=== PATIENT | female | born 1985 | race Caucasian/White ===

== ENCOUNTER 2016-12-20 20:34 | Emergency (ER) | payer MEDICAID ==
--- NOTE | 2016-12-20 23:28 | RADIOLOGY REPORT (SQ) ---
EXAM DESCRIPTION: FOOT RIGHT COMPLETE COMPLETED DATE/TIME: 12/20/2016 11:11 pm REASON FOR STUDY: pain COMPARISON: None. NUMBER OF VIEWS: Three views. TECHNIQUE: AP, lateral and oblique radiographic images acquired of the right foot. LIMITATIONS: None. FINDINGS: MINERALIZATION: Normal. BONES: No acute fracture or dislocation. No worrisome bone lesions. JOINTS: No effusions. SOFT TISSUES: Diffuse dorsal soft tissue swelling. No radiopaque foreign body. OTHER: No other significant finding. IMPRESSION: Diffuse dorsal soft tissue swelling. No fracture or radiopaque foreign body. TECHNICAL DOCUMENTATION: JOB ID: [id number] [employer]- All Rights Reserved
[2016-12-21] MEDS ORDERED: HYDROCODONE/ACETAMINOPHEN 5-325 MG 6 TAB/DSPK PO PRN (00:58)
[2016-12-21] MEDS ORDERED: DIPHENHYDRAMINE HCL 50 MG CAPSULE PO ONE (00:58)
[2016-12-21] MEDS ORDERED: DEXAMETHASONE 4 MG TABLET PO ONE (00:58)
--- NOTE | 2016-12-21 01:01 | ER Document Report ---
HPI - HPI Patient complains to provider of: right foot swelling Onset: This evening Onset/Duration: Gradual Quality of pain: Achy Pain Level: 3 Context: Patient states that she went to the beach today and about an hour after returning from the beach she noticed that her foot was itchy and mildly red. Patient states that that has continued to swell. Patient denies any known injury. Patient denies any marine injury. Patient denies any fever. Associated Symptoms: Other - foot swelling, reddness Exacerbated by: Denies Relieved by: Denies Similar symptoms previously: No Recently seen / treated by doctor: No - ROS ROS below otherwise negative: Yes Systems Reviewed and Negative: Yes All other systems reviewed and negative - CONSTITUTIONAL Constitutional: DENIES: Fever, Chills - CARDIOVASCULAR Cardiovascular: DENIES: Chest pain - RESPIRATORY Respiratory: DENIES: Trouble Breathing, Coughing - MUSCULOSKELETAL Musculoskeletal: REPORTS: Extremity pain, Swelling - DERM Skin Color: Erythema Past Medical History - General Information source: Patient - Social History Smoking Status: Never Smoker Frequency of alcohol use: None Drug Abuse: None Occupation: none Lives with: Family Family History: Reviewed & Not Pertinent - Medical History Medical History: Negative Renal/ Medical History: Denies: Hx Peritoneal Dialysis Past Surgical History: Reports: Hx Gynecologic Surgery Vertical Provider Document - CONSTITUTIONAL Agree With Documented VS: Yes Exam Limitations: No Limitations General Appearance: WD/WN, No Apparent Distress - HEENT HEENT: Atraumatic, Normocephalic - NECK Neck: Normal Inspection, Supple - RESPIRATORY Respiratory: Breath Sounds Normal, No Respiratory Distress, Chest Non-Tender O2 Sat by Pulse Oximetry: 100 - CARDIOVASCULAR Cardiovascular: Regular Rate, Regular Rhythm, No Murmur Pulses: Normal: Dorsalis pedis - MUSCULOSKELETAL/EXTREMETIES Musculoskeletal/Extremeties: MAEW, Tender - Tenderness to right foot, Edema - r foot - NEURO Level of Consciousness: Awake, Alert, Appropriate Motor/Sensory: No Motor Deficit - DERM Integumentary: Warm, Dry. negative: Abscess Notes: Right foot erythema surrounding the centralized lesion concerning for insect bite. No abscess Course - Re-evaluation Re-evalutation: 12/21/16 01:00 Suspect patient's erythematous symptoms are result of inflammatory response versus cellulitis at this time. Discussed worsening signs or symptoms that patient should return immediately for. - Vital Signs Vital signs: Temp Pulse Resp BP Pulse Ox 98.6 F 78 20 115/75 100 06/19/17 20:59 12/20/16 20:59 12/20/16 20:59 12/20/16 20:59 12/20/16 20:59 Discharge - Discharge Clinical Impression: Insect bite Qualifiers: Encounter type: initial encounter Qualified Code(s): W57.XXXA - Bitten or stung by nonvenomous insect and other nonvenomous arthropods, initial encounter Condition: Stable Disposition: HOME, SELF-CARE Instructions: Swollen Insect Bite or Sting ([facility]), Use of Diphenhydramine, Topical Steroid Cream or Ointment ([facility]), Steroid Medication Additional Instructions: Return immediately for any new or worsening symptoms Followup with your primary care provider, call tomorrow to make a followup appointment Prescriptions: Naproxen [Naprosyn 250 Nmg Tablet] 1 tab PO BID #14 tablet Triamcinolone Acetonide [Aristocort 0.1% Cream] 1 applic TP TID #60 gm Referrals: [facility] [Provider Group] - Follow up as needed
[2016-12-21 01:52] VITALS: BP 114/76
== END 2016-12-21 01:54 | disposition home or self-care (01) ==
LOC: ER 20:34
DX: M79.89 Other specified soft tissue disorders (principal); W57.XXXA Bitten or stung by nonvenomous insect and other nonvenomous arthropods, initial encounter
CPT/HCPCS: 99283; 73630; J3490 ×2

== ENCOUNTER 2017-06-12 00:07 | Emergency (ER) | payer MEDICAID ==
[2017-06-12 00:25] VITALS: BP 102/77
[2017-06-12] MEDS ORDERED: DEXAMETHASONE SOD PHOS INJ 10 MG/1 ML VIAL IM ONE (00:55)
--- NOTE | 2017-06-12 00:59 | ER Document Report ---
ED General - General Chief Complaint: Cough Stated Complaint: COUGH,SORETHROAT Time Seen by Provider: 06/12/17 00:38 Notes: Patient is a 31-year-old female who presents with complaint of runny nose cough congestion and some ear pressure. It has been ongoing for several days. Patient's son and also of the same symptoms. She has not had any fevers. She is not a smoker. She has no chronic medical issues. She denies abdominal pain or vomiting. No other complaints at this time. - Related Data Allergies/Adverse Reactions: No Known Allergies Allergy (Verified 06/12/17 00:09) Past Medical History - Social History Smoking Status: Never Smoker Chew tobacco use (# tins/day): No Frequency of alcohol use: None Drug Abuse: None Family History: Reviewed & Not Pertinent Patient has suicidal ideation: No Patient has homicidal ideation: No Renal/ Medical History: Denies: Hx Peritoneal Dialysis Past Surgical History: Reports: Hx Gynecologic Surgery - Immunizations Hx Diphtheria, Pertussis, Tetanus Vaccination: Yes Review of Systems - Review of Systems Notes: My Normal Review Basic REVIEW OF SYSTEMS: CONSTITUTIONAL : Denies fever, chills, or sweats. EENT: Nasal congestion. Ear pressure. RESPIRATORY: Cough. GASTROINTESTINAL: Denies abdominal pain. Denies nausea, vomiting, or diarrhea. Denies constipation. Last BM: MUSCULOSKELETAL: Denies neck or back pain or joint pain or swelling. SKIN: Denies rash or skin lesions. NEUROLOGICAL: Denies altered mental status or loss of consciousness. Denies headache. Denies weakness or paralysis or loss of use of either side. Denies problems with gait or speech. Denies sensory or motor loss. ALL OTHER SYSTEMS REVIEWED AND NEGATIVE. Physical Exam - Vital signs Vitals: Temp Pulse Resp BP Pulse Ox 98.6 F 90 16 102/77 97 06/12/17 00:24 06/12/17 00:24 06/12/17 00:24 06/12/17 00:24 06/12/17 00:24 - Notes Notes: General Appearance: Well nourished, alert, cooperative, no acute distress, no obvious discomfort. Well-appearing. Vitals: reviewed, See vital signs table. Head: no swelling or tenderness to the head Eyes: PERRL, EOMI, Conjuctiva clear Mouth: No decreasd moisture Throat: No tonsillar inflammation, Ears: Normal-appearing tympanic membranes bilaterally. Small amount of clear fluid behind the TMs. No redness or erythema. Neck: Supple, no neck tenderness Lungs: No wheezing, No rales, No rhonci, No accessory muscle use, good air exchange bilaterally. Heart: Normal rate, Regular rythm, No murmur, no rub Abdomen: Normal BS, soft, No rigidity, No abdominal tenderness, No guarding, no rebound, no abdominal masses, no organomegaly Extremities: strength 5/5 in all extremities, good pulses in all extremities, no swelling or tenderness in the extremities, no edema. Skin: warm, dry, appropriate color, no rash Neuro: speech clear, oriented x 3, normal affect, responds appropriately to questions. Course - Re-evaluation Re-evalutation: 06/12/17 05:13 Patient is well-appearing. A small amount of clear fluid behind her ear is consistent with the nasal congestion. Explained to her that the congestion is most likely causing the pressure behind her ears. I will give her a shot of Decadron as this will probably help her symptomatically. I encourage her to return to ER if she has fevers, vomiting, difficulty breathing, or if she feels unwell. Patient agrees with plan will be discharged home. Dictation of this chart was performed using voice recognition software; therefore, there may be some unintended grammatical errors. - Vital Signs Vital signs: Temp Pulse Resp BP Pulse Ox 98.6 F 90 16 102/77 97 06/12/17 00:24 06/12/17 00:24 06/12/17 00:24 06/12/17 00:24 06/12/17 00:24 Discharge - Discharge Clinical Impression: URI (upper respiratory infection) Qualifiers: URI type: unspecified URI Qualified Code(s): J06.9 - Acute upper respiratory infection, unspecified Condition: Good Disposition: HOME, SELF-CARE Additional Instructions: Please follow up with the dental technician apprentice in 2-3 days for reevaluation. Please return to the ER if you have difficulty breathing, fevers, vomiting, or feel that you are worsening. Referrals: CARLOS SCHULTE, JOANC [Primary Care Provider] - Follow up as needed
== END 2017-06-12 01:23 | disposition home or self-care (01) ==
LOC: ER 00:07
DX: J06.9 Acute upper respiratory infection, unspecified (principal)
CPT/HCPCS: 99283; 96372; J1100

== ENCOUNTER 2017-08-31 10:13 | Emergency (ER) | payer MEDICAID ==
--- NOTE | 2017-08-31 11:07 | ER Document Report ---
HPI - HPI Pain Level: 3 Context: 31 yo female c/o cold symptoms x 1 day. sore throat, ear pain , cough. no fever Associated Symptoms: None, Nonproductive cough, Rhinnorhea, Sore throat. denies : Nausea, Vomiting Exacerbated by: Denies Relieved by: Denies Similar symptoms previously: Yes Recently seen / treated by doctor: No - CONSTITUTIONAL Constitutional: DENIES: Fever, Chills - EENT EENT: REPORTS: Sore Throat, Ear Pain - RESPIRATORY Respiratory: REPORTS: Coughing Past Medical History - General Information source: Patient - Social History Smoking Status: Never Smoker Chew tobacco use (# tins/day): No Frequency of alcohol use: None Drug Abuse: None Lives with: Family Family History: Reviewed & Not Pertinent Patient has suicidal ideation: No Patient has homicidal ideation: No Renal/ Medical History: Denies: Hx Peritoneal Dialysis Malignancy Medical History: Reports: Hx Cervical Cancer Past Surgical History: Reports: Hx Gynecologic Surgery - Immunizations Hx Diphtheria, Pertussis, Tetanus Vaccination: Yes Vertical Provider Document - CONSTITUTIONAL Agree With Documented VS: Yes Exam Limitations: No Limitations - HEENT HEENT: Atraumatic, PERRLA, Pharyngeal Erythema - OP mildly injected. no exudate. no edema - NECK Neck: Normal Inspection, Supple - RESPIRATORY Respiratory: Breath Sounds Normal, No Respiratory Distress O2 Sat by Pulse Oximetry: 96 - GI/ABDOMEN Gastrointestinal: Abdomen Soft, Abdomen Non-Tender - MUSCULOSKELETAL/EXTREMETIES Musculoskeletal/Extremeties: MAEW - NEURO Level of Consciousness: Awake, Alert, Appropriate - DERM Integumentary: Warm, Dry, No Rash Course - Re-evaluation Re-evalutation: 08/31/17 11:05 H&P c/w viral URI without signs of respiratory distress, pneumonia, sepsis or dehydration. symptomatic support. pt stable for discharge - Vital Signs Vital signs: Temp Pulse Resp BP Pulse Ox 98.9 F 101 H 16 129/78 H 96 08/31/17 10:19 08/31/17 10:19 08/31/17 10:19 08/31/17 10:19 08/31/17 10:19 Discharge - Discharge Clinical Impression: URI (upper respiratory infection) Qualifiers: URI type: unspecified viral URI Qualified Code(s): J06.9 - Acute upper respiratory infection, unspecified Condition: Stable Disposition: HOME, SELF-CARE Instructions: Acetaminophen, Fever ([facility]), Upper Respiratory Illness ([facility]), Viral Syndrome ([facility]) Additional Instructions: You have a viral upper respiratory illness Symptomatic support Follow up with primary care if symptoms persist more than 10 days Referrals: CARLOS SCHULTE, HEAD LINEMAN-C [Primary Care Provider] - Follow up as needed
[2017-08-31 11:35] VITALS: BP 112/72
== END 2017-08-31 11:35 | disposition home or self-care (01) ==
LOC: ER 10:13
DX: J06.9 Acute upper respiratory infection, unspecified (principal); J02.9 Acute pharyngitis, unspecified; H92.09 Otalgia, unspecified ear; R05 Cough; J34.89 Other specified disorders of nose and nasal sinuses
CPT/HCPCS: 99282

== ENCOUNTER 2018-07-09 16:24 | Emergency (ER) | payer MEDICAID ==
[2018-07-09] MEDS ORDERED: PREDNISONE 20 MG TABLET PO ONE (19:23)
[2018-07-09] MEDS ORDERED: IPRATROPIUM/ALBUTEROL 0.5-2.5 MG/3 ML AMPUL NEB ONE (19:23)
--- NOTE | 2018-07-09 20:08 | RADIOLOGY REPORT (SQ) ---
EXAM DESCRIPTION: CHEST 2 VIEWS COMPLETED DATE/TIME: 07/09/2018 7:55 pm REASON FOR STUDY: SOB cough wheeze COMPARISON: None. NUMBER OF VIEWS: Two view. TECHNIQUE: Frontal and lateral radiographic views of the chest acquired. LIMITATIONS: None. FINDINGS: LUNGS AND PLEURA: Low lung volumes. No opacities, masses or pneumothorax. No pleural eff usion. MEDIASTINUM AND HILAR STRUCTURES: No masses. No contour abnormalities. HEART AND VASCULAR STRUCTURES: Heart normal in size and contour. No evidence for failure. BONES: No acute findings. HARDWARE: None in the chest. OTHER: No other significant finding. IMPRESSION: LOW LUNG VOLUMES. NO SIGNIFICANT RADIOGRAPHIC FINDING IN THE CHEST. TECHNICAL DOCUMENTATION: JOB ID: [id number] [employer]- All Rights Reserved Reading location - IP/workstation name: [email or web address]
--- NOTE | 2018-07-09 20:33 | ER Document Report ---
ED Respiratory Problem - General Chief Complaint: Cold Symptoms Stated Complaint: EAR PAIN Time Seen by Provider: 07/09/18 18:07 Notes: Patient is a 32-year-old female presents to the emergency department complaining of 10 days of cough and congestion, bilateral ear pain, and sore throat when she coughs. Patient is denying any fever, nausea, vomiting, diarrhea. Past medical history: Exercise-induced asthma Medications: None Allergies: None Patient's denying smoking, illicit drug use, EtOH use. TRAVEL OUTSIDE OF THE [place] IN LAST 30 DAYS: No - Related Data Allergies/Adverse Reactions: No Known Allergies Allergy (Verified 08/31/17 10:15) Past Medical History - General Information source: Patient - Social History Smoking Status: Never Smoker Chew tobacco use (# tins/day): No Frequency of alcohol use: None Drug Abuse: None Family History: Reviewed & Not Pertinent Patient has suicidal ideation: No Patient has homicidal ideation: No Renal/ Medical History: Denies: Hx Peritoneal Dialysis Malignancy Medical History: Reports: Hx Cervical Cancer Past Surgical History: Reports: Hx Gynecologic Surgery - Immunizations Hx Diphtheria, Pertussis, Tetanus Vaccination: Yes Review of Systems - Review of Systems Constitutional: See HPI EENT: See HPI Cardiovascular: See HPI Respiratory: See HPI Gastrointestinal: No symptoms reported Genitourinary: No symptoms reported Female Genitourinary: No symptoms reported Musculoskeletal: No symptoms reported Skin: No symptoms reported Hematologic/Lymphatic: No symptoms reported Neurological/Psychological: No symptoms reported Physical Exam - Vital signs Vitals: Temp Pulse Resp BP Pulse Ox 98.5 F 90 16 134/86 H 97 07/09/18 16:31 07/09/18 16:31 07/09/18 16:31 07/09/18 16:31 07/09/18 16:31 - Notes Notes: GENERAL: Alert, interacts well. No acute distress. HEAD: Normocephalic, atraumatic. EYES: Pupils equal, round, and reactive to light. Extraocular movements intact. ENT: Oral mucosa moist, tongue midline. Nares patent, swollen turbinates bilaterally, TM's intact, Nonerythematous, nonbulging. Pharynx within normal limits, no palatal petechiae or exudate noted. NECK: Full range of motion. Supple. Trachea midline. No lymphadenopathy appreciated LUNGS: no rales, or rhonchi. No respiratory distress. Scant and expiratory wheeze heard bilateral bases. Bilateral apices clear HEART: Regular rate and rhythm. No murmur ABDOMEN: Obese soft, non-tender. Non-distended. Bowel sounds present in all 4 quadrants. EXTREMITIES: Moves all 4 extremities spontaneously. No edema, normal radial and dorsalis pedis pulses bilaterally. No cyanosis. BACK: no cervical, thoracic, lumbar midline tenderness. No saddle anesthesia, normal distal neurovascular exam. NEUROLOGICAL: Alert and oriented x3. Normal speech. cranial nerves II through XII grossly intact PSYCH: Normal affect, normal mood. SKIN: Warm, dry, normal turgor. No rashes or lesions noted. Course - Re-evaluation Re-evalutation: 07/09/18 20:31 Patient was given a DuoNeb treatment in the emergency room which has resolved the wheezing that was heard in the bilateral bases. Patient states "I feel like I can take a deep breath now." Patient's chest x-ray shows no signs of pneumonia, pneumothorax, rib fracture. Discussed use of home albuterol and steroids. Patient is nontoxic, non-tachycardic, afebrile, stable for discharge. - Vital Signs Vital signs: Temp Pulse Resp BP Pulse Ox 98.5 F 90 16 134/86 H 97 07/09/18 16:31 07/09/18 16:31 07/09/18 16:31 07/09/18 16:31 07/09/18 16:31 Discharge - Discharge Clinical Impression: Bronchospasm, Bronchitis Condition: Stable Disposition: HOME, SELF-CARE Instructions: Bronchitis With Bronchospasm (Wheezing) ([facility]) Additional Instructions: As we discussed you have been seen and treated in the emergency department for an upper respiratory infection, bronchitis, wheezing. Please take medications as prescribed. Please follow-up with your primary care provider in the next 24- 48 hours. Please return to the emergency room for any other concerning symptoms. Prescriptions: Albuterol Sulfate [Proair HFA Inhalation Aerosol 8.5 gm MDI] 2 puff IH Q4H PRN #1 mdi PRN Reason: Mometasone Furoate [Nasonex] 1 spray NS Q12 #1 spray.pump Prednisone [Deltasone 20 mg Tablet] 3 tab PO DAILY 5 Days tablet Referrals: YUNIOR FLORES MD [Primary Care Provider] - Follow up as needed
[2018-07-09 20:57] VITALS: BP 117/75
== END 2018-07-09 20:45 | disposition home or self-care (01) ==
LOC: ER 16:24
DX: J45.909 Unspecified asthma, uncomplicated (principal); J02.9 Acute pharyngitis, unspecified; R05 Cough; H92.03 Otalgia, bilateral; Z85.41 Personal history of malignant neoplasm of cervix uteri
CPT/HCPCS: 94640; 99283; 71046; J7512; J7620